=== PATIENT | female | born 1985 | race Two or more races ===

== ENCOUNTER 2020-09-11 09:52 | Outpatient (CLI) | payer OTHER ==
--- NOTE | 2020-09-11 10:48 | Non Stress Test Report ---
Non Stress Test Datetime Report Generated by CPN: 09/11/2020 10:48 DEMOGRAPHIC EGA NST: 40.4 MONITORING Monitor Explained: Monitor Explained; Test Explained; Patient Verbalized Understanding Time on Monitor: 09/11/2020 10:07 Time off Monitor: 09/11/2020 10:32 NST Duration: 25 NST INTERVENTIONS NST Interventions: Reposition Patient Physician Notified NST: Dr. Liao on unit, reviewed fht BABY A: [id number] BABY A Movement : Present Contraction Frequency : uterine irritability FHR Baseline : 135 Accelerations : 15X15 Decelerations : None Variability : Moderate 6-25bpm NST Review: Meets Criteria for Reactive NST NST Review and Verified By : ARELI Quezada Results: Reactive NST REPORT Report Trigger: Send Report
--- NOTE | 2020-09-11 11:14 | PDOC PROGRESS REPORT ---
Subjective Date:: 09/11/20 Subjective:: here for NST Reason For Visit: NST do to post term Physical Exam - Physical Exam Vital Signs: Intake & Output 09/10/20 09/11/20 09/12/20 06:59 06:59 06:59 Weight 98.4 kg General appearance: PRESENT: no acute distress, well-developed, well-nourished Eye exam: PRESENT: conjunctiva pink, EOMI, PERRLA. ABSENT: scleral icterus Respiratory exam: PRESENT: clear to auscultation yoselin, symmetrical, unlabored Cardiovascular exam: PRESENT: RRR. ABSENT: diastolic murmur, rubs, systolic murmur Pulses: PRESENT: normal dorsalis pedis pul, +2 pedal pulses bilateral Vascular exam: PRESENT: normal capillary refill GI/Abdominal exam: PRESENT: normal bowel sounds, soft. ABSENT: distended, guarding, mass, organolmegaly, rebound, tenderness Rectal exam: PRESENT: deferred Extremities exam: PRESENT: full ROM. ABSENT: calf tenderness, clubbing, pedal edema Neurological exam: PRESENT: alert, awake, oriented to person, oriented to place, oriented to time, oriented to situation, CN II-XII grossly intact. ABSENT: motor sensory deficit Skin exam: PRESENT: dry, intact, warm. ABSENT: cyanosis, rash Assessment & Plan - Diagnosis (1) Post term over 40 weeks Is this a current diagnosis for this admission?: Yes Plan: Reactive NST. POst term . KAMAR normal in office this week. Cvx /-3/post/soft. Reviewed recommendations for IOL and plan for cervidil IOL on Monday. Pt has orders and instructions from office in hand. Reassuring FWB - Time Time Spent with patient: 15-24 minutes Medications reviewed and adjusted accordingly: Yes Anticipated discharge: Home Anticipated DC Timeframe: Other - now - Inpatient Certification Based on my medical assessment, after consideration of the patient's comorbidities, presenting symptoms, or acuity I expect that the services needed warrant INPATIENT care.: No I certify that my determination is in accordance with my understanding of Medicare's requirements for reasonable and necessary INPATIENT services [42 CFR 412.3e].: No Medical Necessity: Other - Plan Summary Plan Summary: Discharge to home now. Plan for IOL on Monday
== END 2020-09-11 10:52 | disposition home or self-care (01) ==
LOC: LC 09:52
PROVIDERS: ATTEND Student in an Organized Health Care Education/Training Program
DX: O48.0 Post-term pregnancy (principal); Z3A.40 40 weeks gestation of pregnancy
CPT/HCPCS: 59025

== ENCOUNTER 2020-09-14 06:10 | Inpatient (IN) | payer OTHER ==
[2020-09-14] MEDS ORDERED: PENICILLIN G-K 5 MILLION UNIT VIAL ONE (06:20)
[2020-09-14] MEDS ORDERED: MISOPROSTOL 0.2 MG TABLET ONE (06:20)
[2020-09-14] MEDS ORDERED: OXYTOCIN 10 UNIT/ML VIAL ONE (06:20)
[2020-09-14] MEDS ORDERED: OXYTOCIN/0.9 % SODIUM CHLORIDE 30 UNIT/500 ML RTUINJ ONE (06:20)
[2020-09-14] MEDS ORDERED: LIDOCAINE 1% INJ-PF (10 MG/ML) 30 ML SDV ONE (06:20)
[2020-09-14] MEDS ORDERED: OXYTOCIN/0.9 % SODIUM CHLORIDE 30 UNIT/500 ML RTUINJ IV PRN ×2 (06:22→19:04)
[2020-09-14] MEDS ORDERED: RINGERS SOLUTION,LACTATED 500 ML IV ONE (06:24)
[2020-09-14] MEDS ORDERED: PENICILLIN G POTASSIUM 5,000,000 UNIT in DEXTROSE 5%-WATER 100 ML IV ONE (06:24)
[2020-09-14 06:52] LABS: ABSOLUTE EOSINOPHILS # (AUTO) 0.1 10^3/uL (0.0-0.6); ABSOLUTE LYMPHOCYTES (AUTO) 1.5 10^3/uL (0.5-4.7); ABSOLUTE MONOCYTES (AUTO) 0.7 10^3/uL (0.1-1.4); ABSOLUTE NEUT (AUTO) 6.1 10^3/uL (1.7-8.2); BASOPHILS % (AUTO) 0.5 % (0-2); EOSINOPHILS % (AUTO) 1.5 % (0-6); HEMATOCRIT 32.1 % (36.0-47.0); HEMOGLOBIN 11.6 g/dL (12.0-15.5); LYMPHOCYTES % (AUTO) 17.9 % (13-45); MEAN CORPUSCULAR HEMOGLOBIN 30.4 pg (27.0-33.4); MEAN CORPUSCULAR HGB CONC 36.2 g/dL (32.0-36.0); MEAN CORPUSCULAR VOLUME 84 fl (80-97); MONOCYTES % (AUTO) 8.7 % (3-13); PLATELET COUNT 193 10^3/uL (150-450); RED BLOOD COUNT 3.81 10^6/uL (3.72-5.28); RED CELL DISTRIBUTION WIDTH 14.1 % (11.5-14.0); SEGMENTED NEUTROPHILS % (AUTO) 71.4 % (42-78); TOTAL CELLS COUNTED % (AUTO) 100 %; WHITE BLOOD COUNT 8.6 10^3/uL (4.0-10.5)
[2020-09-14 06:56] LABS: APPEARANCE,URINE SLIGHTLY-CLOUDY; BILIRUBIN,URINE NEGATIVE (NEGATIVE); COLOR,URINE YELLOW; GLUCOSE, URINE NEGATIVE (NEGATIVE); KETONES,URINE NEGATIVE (NEGATIVE); LEUKOCYTE ESTERASE,URINE NEGATIVE (NEGATIVE); NITRITE,URINE NEGATIVE (NEGATIVE); PROTEIN,URINE NEGATIVE (NEGATIVE); URINE SPECIFIC GRAVITY 1.019; UROBILINOGEN,URINE NEGATIVE mg/dL (<2.0)
[2020-09-14] MEDS: RINGERS SOLUTION,LACTATED 1,000 ML IV PRN ×2 (06:56→07:37)
[2020-09-14 07:35] LABS: URINE AMPHETAMINES SCREEN NEGATIVE; URINE BARBITURATES SCREEN NEGATIVE; URINE BENZODIAZEPINES SCREEN NEGATIVE; URINE COCAINE SCREEN NEGATIVE; URINE MARIJUANA (THC) SCREEN NEGATIVE; URINE METHADONE SCREEN NEGATIVE; URINE PHENCYCLIDINE SCREEN NEGATIVE
--- NOTE | 2020-09-14 09:43 | Admission Physical ---
Datetime Report Generated by CPN: 09/14/2020 09:43 CURRENT ADMISSION Chief Complaint: Scheduled Induction of Labor Indication for Induction: Post Dates Admit Impression : Postterm, Intrauterine ; No Active Labor; Induction of Labor Admit Plan: Admit to Unit; Initiate Labor Induction Protocol Admit Plan- Other: GBS + pelvis proven to 7lb 14 oz ALLERGIES Medication Allergies: No Medication Allergies: No Known Allergies (09/14/2020) Latex: No Latex Allergies Food Allergies: none Environmental Allergies: none OBSTETRICAL HISTORY EDC: 09/07/2020 00:00 : 5 Para: 4 Term: 4 : 0 SAB: 0 IAB: 0 Ectopic: 0 Livin Cesareans: 0 VBACs: 0 Multiple Births: 0 Gestational Diabetes: No Rh Sensitization: No Incompetent Cervix: No STACY: No Infertility: No ART Treatment: No Uterine Anomaly: No IUGR: No Hx Previous C/S: No Macrosomia: No Hx Loss/Stillborn: No PIH: No Hx : No Placenta Previa/Abruption: No Depression/PP Depression: No PTL/PROM: No Post Hemorrhage: No Current Procedures: Ultrasound Obstetrical History Comments: G1- 2007 girl G2- 2009 boy G3- 2014 boy G4- 2015 boy G5- Current SEE RECORDS Alcohol: No Marijuana : No Cocaine: No Other Illicit Drugs: No Cigarettes: Never Smoker. 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 Surgery: No Heart Disease: No Hosp/Surgery: Yes Autoimmune Disorder: No Anesthetic Complications: No Kidney Disease: No Abnormal Pap Smear: No Neuro/Epilepsy: No Psychiatric Disorders: No Other Medical Diseases: No Hepatitis/Liver Disease: No Significant Family History: No Varicosities/Phlebitis: No Trauma/Violence : No Thyroid Dysfunction: No Medical History Comments: hx of pre-e, gallbladder removal 07/12/2018, hysteroscopy 10/12/2017 INFECTIOUS HISTORY Gonorrhea: No Genital Herpes: No Chlamydia: No Tuberculosis: No Syphilis: No Hepatitis: No HIV/AIDS Exposure: No Rash or Viral Illness: No HPV: No PHYSICAL EXAM General: Normal HEENT: Normal Neurologic: Normal Thyroid: Deferred Heart: Normal Lungs: Normal Breast: Deferred Back: Deferred Abdomen: Normal Genitourinary Exam: Normal Extremities: Normal DTRs: Deferred Pelvic Type: Adequate Vital Signs: Reviewed FETUS A EGA: 41.0 Monitoring: External US FHR- Baseline: 140 Variability: Moderate 6-25bpm FHR Category: Category II Presentation: Vertex Admit Comment: , here for IOL undecided on Epidural GBS+, pcn given PLANS FOR LABOR AND DELIVERY Feeding Preference: Formula Benefit of Breast Feed Discussed: Yes Circumcision: N/A INFORMED CONSENT Assignment: Oralia Espinoza MD Signature: with User ID: Mirta : with User ID: Mirta
[2020-09-14] MEDS: PENICILLIN G POTASSIUM 2,500,000 UNIT in DEXTROSE 5%-WATER 50 ML IV SCH ×2 (10:30→14:30)
[2020-09-14] MEDS ORDERED: EPHEDRINE SULFATE INJ 50 MG/1 ML AMPULE ONE (15:33)
[2020-09-14] MEDS ORDERED: FENTANYL/BUPIVACAINE/NS/PF 300 MCG/150 ML RTUINJ EPI ONE (15:33)
[2020-09-14] MEDS ORDERED: ROPIVACAINE HCL 0.2% INJ/PF (2 MG/ML) 20 ML SDV ONE (15:34)
[2020-09-14] MEDS ORDERED: MISOPROSTOL 0.2 MG TABLET PR ONE (17:00)
--- NOTE | 2020-09-14 17:47 | Delivery Summary ---
Del Sum A-C Datetime Report Generated by CPN: 09/14/2020 17:46 DELIVERY PERSONNEL DELIVERY PERSONNEL: [id number] Delivery Doctor:: Linda Alvarado CNM Labor and Delivery Nurse:: Miesha Ruiz RN Nursery Nurse:: Jaqui Cooley RN Photography Spotter/GUARD MUSEUM: Marisol Khan, FILE MACHINE OPERATOR MATERNAL INFORMATION Delivery Anesthesia: Epidural Medications After Delivery: Pitocin 30 Units in 500ml NS/D5W; Cytotec 1000mcg Per Rectum/Vagina Delivery QBL: 325 Delivery QBL Comment: 325 Maternal Complications: None Provider Comments: SVDVF over intact perineum. Tight nuchal cord, shoulders tight, mild dystocia relieved with Camelia and suprapubic pressure, somersaulted baby through cord. Infant vigorous, to mothers abd. Cord clamped x 2 cut per FOB, 3VC. Placenta intact via oconnor. Bleeding light initially, then had gush, clots cleared from DARLINE. Cytotec placed rectally. Infant and mother stable. LABOR SUMMARY EDC: 09/07/2020 00:00 No. Babies in Womb: 1 Attempted: No Labor Anesthesia: Epidural LABOR INFORMATION Reason for Induction: Post Dates Onset of Labor: 09/14/2020 09:54 Complete Dilatation: 09/14/2020 16:28 Oxytocin: Induction Group B Beta Strep: Positive Antibiotics # of Doses: 3 Antibiotics Time of Last Dose: 09/14/2020 14:30 Name of Antibiotic Given: PCN G-K Steroids Given: None Reason Steroids Not Administered: Not Applicable MEMBRANES Membranes Rupture Method: Artificial Rupture of Membranes: 09/14/2020 09:54 Length of Rupture (hr): 6.85 Amniotic Fluid Color: Clear Amniotic Fluid Amount: Moderate Amniotic Fluid Odor: Normal STAGES OF LABOR Stage 1 hr: 6 Stage 1 min: 34 Stage 2 hr: 0 Stage 2 min: 17 Stage 3 hr: 0 Stage 3 min: 6 Total Time in Labor hr: 6 Total Time in Labor min: 57 VAGINAL DELIVERY Episiotomy: None Laceration #1: None Laceration Extension #1: N/A Laceration Repair: Not Applicable Sponge Count Correct: Yes Sharps Count Correct: N/A CSECTION DELIVERY Primary Indication: N/A Secondary Indication: N/A CSection Incidence: N/A Labor: N/A Elective: N/A BABY A INFORMATION Delivery Date/Time: 09/14/2020 16:45 Method of Delivery: Vaginal Nurse Controlled Delivery: No Born in Route : No : N/A Forceps: N/A Vacuum Extraction: N/A Shoulder Dystocia : Yes SHOULDER DYSTOCIA BABY A Delivery of Head: 09/14/2020 16:44 Time Head to Delivery : 1.0 1st Intervention to Resolve: Gentle Attempt at Traction, Assisted by Maternal Expulsive Efforts 2nd Intervention to Resolve: McRobert's Maneuver 3rd Intervention to Resolve: Suprapubic Pressure Verify NO Fundal Pressure: No Fundal Pressure Applied Shoulder Dystocia Comments: Total time 20 seconds PRESENTATION/POSITION BABY A Presentation: Cephalic Cephalic Presentation: Vertex Vertex Position: Right Occipital Anterior Breech Presentation: N/A PLACENTA INFORMATION BABY A Placenta Delivery Time : 09/14/2020 16:51 Placenta Method of Delivery: Spontaneous Placenta Status: Delivered SCORES BABY A Heart Rate 1 min: >100 bpm Resp Effort 1 min: Good Cry Reflex Irritability 1 min: Cough or Sneeze or Pulls Away Muscle Tone 1 min: Active Motion Color 1 min: Blue/Pale Resuscitation Effort 1 min: Tactile Stimulation SCORE 1 MIN: 8 Heart Rate 5 min: >100 bpm Resp Effort 5 min: Good Cry Reflex Irritability 5 min: Cough or Sneeze or Pulls Away Muscle Tone 5 min: Active Motion Color 5 min: Body [place], Extremities Blue Resuscitation Effort 5 min: N/A SCORE 5 MIN: 9 INFORMATION BABY A Gestational Age at Delivery: 41.0 Gestational Status: Late Term- 41- 41.6 Weeks Infant Outcome : Liveborn Infant Condition : Stable Sex: Female IDENTIFICATION BABY A Verification Date/Time: 09/14/2020 17:18 ID Band Number: [id number] Mother's Name Verified: Yes Infant RN Verifying : Caleb Ruiz RN Additional Verifying Personnel: Isaak Lange RN WEIGHT/LENGTH BABY A Birthweight (gm): 3880 Infant Weight (lb): 8 Infant Weight (oz): 9 Infant Length (in): 20.50 Infant Length (cm): 52.07 CORD INFORMATION BABY A No. Cord Vessels: 3 Nuchal Cord : N/A Cord Blood Taken: Yes-For Storage (Mom's Blood type +) Infant Suction: None ASSESSMENT BABY A Skin to Skin: Yes BABY B INFORMATION : N/A SIGNATURES Assignment: Oralia Espinoza MD Signature: with User ID: Stans : with User ID: Mirta : I was personally available for consultation and serving as supervising physician for the P.
--- NOTE | 2020-09-14 17:47 | Birth Certificate Data ---
Cert Data Datetime Report Generated by CPN: 09/14/2020 17:46 CERTIFICATE DATA Delivery Provider: Linda Alvarado CNM (09/11/2020 09:57:Linda Alvarado CNM) 47a. Care: Yes (09/11/2020 09:57:Riri Vallejo RN) 47b. Date of First Visit: 02/26/2020 00:00 (09/11/2020 09:57:Riri Vallejo RN) 47c. Date of Last Visit: 09/09/2020 00:00 (09/11/2020 09:57:Riri Vallejo RN) 47d. Number of Visits: 10 (09/11/2020 09:57:Riri Vallejo RN) 48a. Number of Prev Live Births: 4 (09/11/2020 09:57:Riri Vallejo RN) 48b. Now Livin (09/11/2020 09:57:Riri Vallejo RN) 48c. Live Births Now : 0 (09/11/2020 09:57:QS system process) 48d. Date of Last Live : 03/25/2016 00:00 (09/11/2020 09:57:Ashwini Hunter RN) 48e. Losses: 0 (09/11/2020 09:57:Riri Vallejo RN) RISK FACTORS IN THIS 49a. Diabetes: No (09/11/2020 09:57:Ashwini Hunter RN) 49b. Hypertension: No (09/11/2020 09:57:Ashwini Hunter RN) Type of Hypertension: Gestational (PIH, Pre-eclampsia) (09/11/2020 09:57:Riri Vallejo RN) 49c. Previous Births: 0 (09/11/2020 09:57:Riri Vallejo RN) 49d. Stillborns: No (09/11/2020 09:57:Ashwini Hunter RN) 49d. IUGR: No (09/11/2020 09:57:Ashwini Hunter RN) 49e. Infertility Treatment: No (09/11/2020 09:57:Ashwini Hunter RN) 49f. Previous Cesareans: 0 (09/11/2020 09:57:Riri Vallejo RN) Mother's Height 50b. Height Inches: 68 (09/14/2020 08:26:QS system process) Mother's Weight 51a. Pre- Weight (lbs): 185 (09/11/2020 09:57:Riri Vallejo RN) 51b. Weight at Delivery (lbs): 216 (09/14/2020 08:26:QS system process) 52. Dt Last Normal Menses Began: 12/02/2019 00:00 (09/11/2020 09:57:Riri Vallejo RN) Infections Present/Treated 53a. Gonorrhea: No (09/11/2020 09:57:Ashwini Hunter RN) Results this Hospital Visit : Negative (09/11/2020 09:57:Nickie Fuller RN) 53b. Syphilis: No (09/11/2020 09:57:Ashwini Hunter RN) Results this Hospital Visit: NONREACTIVE (09/14/2020 06:40:QS system process) 53c. Chlamydia: No (09/11/2020 09:57:Ashwini Hunter RN) Results this Hospital Visit: Negative (09/11/2020 09:57:Nickie Fuller RN) 53d. Hepatitis B: No (09/11/2020 09:57:Ashwini Hunter RN) Results this Hospital Visit: Negative (09/11/2020 09:57:Nickie Fuller RN) 53e. Hepatitis C: Negative (09/11/2020 09:57:Riri Vlalejo RN) 53h. Mother Tested for HBsAG: Yes (09/11/2020 09:57:Riri Vallejo RN) 53i. Date Tested: 02/26/2020 00:00 (09/11/2020 09:57:Riri Vallejo RN) 53j. Test Result: Negative (09/11/2020 09:57:Nickie Fuller RN) Obstetric Procedures 54a, b, c. Obstetric Procedures: Ultrasound (09/11/2020 09:57:Riri Vallejo RN) Cigarette Smoking Cigarette Smoking: Never Smoker. [id number] (09/11/2020 09:57:Ashwini Hunter RN) 55a. 3 Months Before Preg - Ci (09/11/2020 09:57:Ashwini Hunter RN) 55a. Packs: 0 (09/11/2020 09:57:Ashwini Hunter RN) 55b. 1st Trimester of Preg- Ci (09/11/2020 09:57:Ashwini Hunter RN) 55b. Packs: 0 (09/11/2020 09:57:Ashwini Hunter RN) 55c. 2nd Trimester of Preg- Ci (09/11/2020 09:57:Ashwini Hunter RN) 55c. Packs: 0 (09/11/2020 09:57:Ashwini Hunter RN) 55d. 3rd Trimester of Preg- Ci (09/11/2020 09:57:Ashwini Hunter RN) 55d. Packs: 0 (09/11/2020 09:57:Ashwini Hunter RN) Onset of Labor 56a. PROM >12 Hrs: 6.85 (09/14/2020 09:54:QS system process) 56b. Precipitous Labor <3 Hrs: 6 (09/11/2020 09:57:QS system process) 56c. Prolonged Labor > 20 Hrs: 6 (09/11/2020 09:57:QS system process) 57a. Induction of Labor: Induction (09/11/2020 09:57:Miesha Ruiz RN) 57c. Non-Vertex Presentation A: Vertex (09/11/2020 09:57:Miesha Ruiz RN) 57d. Steroids - Lung Mat: None (09/11/2020 09:57:Miesha Ruiz RN) 57d. Steroids - Lung Mat: Not Applicable (09/11/2020 09:57:Miesha Ruiz RN) 57e. Antibiotics During Labor: 09/14/2020 14:30 (09/11/2020 09:57:Miesha Ruiz RN) 57f. Mat [place] or Temp >100.4: 98.0 (09/11/2020 09:57:Miesha Ruiz RN) 57g. Moderate/Heavy Meconium: Clear (09/14/2020 09:54:Miesha Ruiz RN) 57h. Intolerance of Labor: N/A (09/11/2020 09:57:Miesha Ruiz RN) : N/A (09/11/2020 09:57:Miesha Ruiz RN) 57i. Epidural/Spinal Anesthesia: Epidural (09/11/2020 09:57:Miesha Ruiz RN) Method of Delivery 58a. Forceps - Unsuccessful A: N/A (09/11/2020 09:57:Miesha Joseph, RN) 58b. Vacuum - Unsuccessful A: N/A (09/11/2020 09:57:Mieshagerardo Ruiz, RN) 58c. Presentation at 58c. Presentation at - A : Vertex (09/11/2020 09:57:Mieshagerardo Ruiz, RN) 58c. Presentation at - A : N/A (09/11/2020 09:57:Miesha Ruiz, RN) 58c. Presentation at - A : Cephalic (09/11/2020 09:57:Miesha Ruiz, RN) Final Route and Method of Del 58d. Baby A Route/Delivery: Vaginal (09/14/2020 16:45:Miesha Ruiz RN) 58e. Trial of Labor Attempted: No (09/11/2020 09:57:Mieshagerardo Ruiz RN) 58e. Trial of Labor Attempted A: N/A (09/11/2020 09:57:Mieshagerardo Ruiz RN) 58e. Trial of Labor Attempted B: N/A (09/11/2020 09:57:Miesha ARELI Ruiz) Maternal Morbidity 59b. 3rd or 4th Degree Lacs: None (09/11/2020 09:57:Linda Alvarado CNM) Birthweight Baby A: 3880 (09/11/2020 09:57:Miesha Ruiz RN) 60a. Pounds : 8 (09/11/2020 09:57:QS system process) 60b. Ounces: 9 (09/11/2020 09:57:QS system process) 61. GA at Delivery Baby A: 41.0 (09/11/2020 09:57:Miesha Sales, RN) : Late Term- 41- 41.6 Weeks (09/11/2020 09:57:QS system process) 62a. 5 Minute Baby A: 9 (09/11/2020 09:57:QS system process)
[2020-09-14] MEDS ORDERED: METHYLERGONOVINE MALEATE INJ/PF 0.2 MG/1 ML AMPULE ONE (17:48)
[2020-09-14] MEDS ORDERED: METHYLERGONOVINE MALEATE INJ/PF 0.2 MG/1 ML AMPULE IV ONE (17:52)
[2020-09-14] MEDS: IBUPROFEN 800 MG TABLET PO SCH ×2 (18:52→21:10)
[2020-09-14] MEDS ORDERED: IBUPROFEN 800 MG TABLET ONE (18:52)
[2020-09-14] MEDS ORDERED: DIBUCAINE 1% OINTMENT 28 GM TP PRN (19:04)
[2020-09-14] MEDS ORDERED: ACETAMINOPHEN WITH CODEINE #3 TABLET PO PRN ×2 (19:04)
[2020-09-14] MEDS ORDERED: PSEUDOEPHEDRINE HCL 30 MG TABLET PO PRN (19:04)
[2020-09-14] MEDS ORDERED: BENZOCAINE/MENTHOL AEROSOL SPRAY 56 ML TOP PRN (19:04)
[2020-09-14] MEDS ORDERED: MAG HYDROX/AL HYDROX/SIMETH SUSP 30 ML UDCUP PO PRN (19:04)
[2020-09-14] MEDS ORDERED: ACETAMINOPHEN 650 MG SUPP.RECT PR PRN (19:04)
[2020-09-14] MEDS ORDERED: DIPHENHYDRAMINE HCL 25 MG CAPSULE PO PRN (19:04)
[2020-09-14] MEDS ORDERED: FAMOTIDINE 20 MG TABLET PO PRN (19:04)
[2020-09-14] MEDS ORDERED: GLYCERIN/WITCH HAZEL LEAF 1 EACH MED..WIPE TP PRN (19:04)
[2020-09-14] MEDS ORDERED: MAGNESIUM HYDROXIDE SUSP 30 ML UDCUP PO PRN (19:04)
[2020-09-14] MEDS ORDERED: ZOLPIDEM TARTRATE 5 MG TABLET PO PRN (19:04)
[2020-09-14] MEDS ORDERED: DIPH/PERTUSS(ACELL)/TETANUS VAC/PF 0.5 ML SYR (>=10YO) IM PRN (19:04)
[2020-09-14] MEDS ORDERED: ACETAMINOPHEN 325 MG TABLET PO PRN (19:04)
[2020-09-14] MEDS ORDERED: VARICELLA VACC/PF (1350 UNIT/0.5 ML) 0.5 ML VIAL SUBCUT PRN (19:04)
[2020-09-14] MEDS ORDERED: MEASLES,MUMPS&RUBELLA VACC/PF 0.5 ML VIAL SUBCUT PRN (19:04)
[2020-09-15] MEDS ORDERED: ASPIRIN 81 MG TABLET, CHEWABLE ONE (04:16)
[2020-09-15] MEDS ORDERED: ASPIRIN 81 MG TABLET, CHEWABLE PO ONE (04:45)
[2020-09-15] MEDS: IBUPROFEN 800 MG TABLET PO SCH ×3 (06:00→21:39)
--- NOTE | 2020-09-15 06:20 | RADIOLOGY REPORT (SQ) ---
CLINICAL HISTORY: chest pain, POST 09/14/20 COMPARISON: None. TECHNIQUE: CT CHEST ANGIOGRAPHY WITHOUT THEN WITH IV CONTRAST on 09/15/2020 12:00 AM CAMERA MAKER. MIPS reconstructions were generated. This exam was performed according to our departmental dose-optimization program, which includes automated exposure control, adjustment of the mA and/or kV according to patient size and/or use of iterative reconstruction technique. MIP images were generated. FINDINGS: Thoracic aorta is normal in course and caliber without aneurysm or dissection. Pulmonary arteries are adequately opacified without acute or chronic filling defects. The heart is mildly enlarged. There is no pericardial effusion. Intrathoracic lymph nodes are not enlarged. There is no pleural effusion, pleural thickening or pneumothorax. Central airways are patent. Lungs are clear with no consolidation, mass or interstitial lung disease. There are no acute abnormalities within the limited images of the upper abdomen. There are no acute osseous findings. No suspicious bony lesions. IMPRESSION: No aortic dissection or aneurysm. No pulmonary embolus. No definite pneumonia.
[2020-09-15 07:07] LABS: HEMATOCRIT 30.4 % (36.0-47.0); MEAN CORPUSCULAR HEMOGLOBIN 30.5 pg (27.0-33.4); MEAN CORPUSCULAR HGB CONC 36.3 g/dL (32.0-36.0); MEAN CORPUSCULAR VOLUME 84 fl (80-97); PLATELET COUNT 174 10^3/uL (150-450); RED BLOOD COUNT 3.62 10^6/uL (3.72-5.28); WHITE BLOOD COUNT 9.9 10^3/uL (4.0-10.5)
[2020-09-15] MEDS: FERROUS SULFATE 325 MG TABLET PO SCH ×2 (10:43→17:35)
[2020-09-15] MEDS: SENNOSIDES/DOCUSATE 8.6-50 MG 1 EACH TABLET PO SCH (10:43)
[2020-09-15] MEDS: PRENATAL VITAMIN W DHA CAPSULE PO SCH (10:43)
[2020-09-15] MEDS: DOCUSATE SODIUM 100 MG CAPSULE PO SCH ×2 (10:43→17:35)
--- NOTE | 2020-09-15 11:33 | PDOC PROGRESS REPORT ---
Subjective-OB Progress Note for:: 09/15/20 Subjective: reports bleeding slowing, pain controlled with current meds. denies needs Physical Exam (OB) Vital Signs: Temp Pulse Resp BP Pulse Ox 97.8 F 68 16 105/60 100 09/15/20 07:19 09/15/20 07:19 09/15/20 07:19 09/15/20 07:19 09/15/20 07:19 Intake & Output 09/14/20 09/15/20 09/16/20 06:59 06:59 06:59 Intake Total 185 140 Balance 185 140 Weight 97.9 kg - Maternal Morbidity 59. Maternal Morbidity (serious complications experinced by the mother associated with labor and delivery: None of the above - Abdomen Description: Soft Hernia Present: No Fundal Description: Firm, Midline Fundal Height: u/u - u/2 - Abdominal Distension: No distension Tenderness: Nontender - Extremities Lower extremities: Duke's sign - neg Calf: Normal, Nontender Objective-Diagnostic Laboratory: 09/15/20 06:52 09/15/20 06:52 WBC 9.9 RBC 3.62 L Hgb 11.0 L Hct 30.4 L MCV 84 MCH 30.5 MCHC 36.3 H RDW 14.0 Plt Count 174 Assessment and Plan(PN) - Time Spent with Patient Time with patient: Less than 15 minutes - Disposition Anticipated Discharge Disposition: Home, Self Care Anticipated Discharge Timeframe: within 24 hours
[2020-09-16] MEDS: IBUPROFEN 800 MG TABLET PO SCH (05:33)
[2020-09-16 08:27] VITALS: BP 123/65
[2020-09-16] MEDS: SENNOSIDES/DOCUSATE 8.6-50 MG 1 EACH TABLET PO SCH (10:10)
[2020-09-16] MEDS: PRENATAL VITAMIN W DHA CAPSULE PO SCH (10:10)
[2020-09-16] MEDS: FERROUS SULFATE 325 MG TABLET PO SCH (10:11)
[2020-09-16] MEDS: DOCUSATE SODIUM 100 MG CAPSULE PO SCH (10:11)
--- NOTE | 2020-09-16 10:32 | PDOC DISCHARGE SUMMARY ---
Impression - Admit/DC Date/PCP Admission Date/Primary Care Provider: 09/14/20 06:10 Discharge Date: 09/16/20 - PP day #2, doing well, B+, Rubella Immune, bottlefeeding - Discharge Diagnosis (1) Encounter for induction of labor Is this a current diagnosis for this admission?: Yes (2) Post term over 40 weeks Is this a current diagnosis for this admission?: Yes - Additional Information Resuscitation Status: Full Code Discharge Diet: As Tolerated, Regular Discharge Activity: Activity As Tolerated Prescriptions: Ibuprofen [Motrin 800 mg Tablet] 800 mg PO Q8 #60 tablet Home Medications: No122/Iron/Folic Acid [ Multi Tablet] 1 tab PO DAILY 09/11/20 Ibuprofen [Motrin 800 mg Tablet] 800 mg PO Q8 #60 tablet 09/16/20 HPI Reason(s) for Admission: Induction of Labor Procedures: NST, Ultrasound Intrapartum Procedure(s): Spontaneous Vaginal Delivery Hospital Course 59. Maternal Morbidity (serious complications experinced by the mother associated with labor and delivery: None of the above Results Laboratory Results: WBC 9.9 10^3/uL (4.0-10.5) 09/15/20 06:52 RBC 3.62 10^6/uL (3.72-5.28) L 09/15/20 06:52 Hgb 11.0 g/dL (12.0-15.5) L 09/15/20 06:52 Hct 30.4 % (36.0-47.0) L 09/15/20 06:52 MCV 84 fl (80-97) 09/15/20 06:52 MCH 30.5 pg (27.0-33.4) 09/15/20 06:52 MCHC 36.3 g/dL (32.0-36.0) H 09/15/20 06:52 RDW 14.0 % (11.5-14.0) 09/15/20 06:52 Plt Count 174 10^3/uL (150-450) 09/15/20 06:52 Lymph % (Auto) 17.9 % (13-45) 09/14/20 06:40 [place] % (Auto) 8.7 % (3-13) 09/14/20 06:40 Eos % (Auto) 1.5 % (0-6) 09/14/20 06:40 Baso % (Auto) 0.5 % (0-2) 09/14/20 06:40 Absolute Neuts (auto) 6.1 10^3/uL (1.7-8.2) 09/14/20 06:40 Absolute Lymphs (auto) 1.5 10^3/uL (0.5-4.7) 09/14/20 06:40 Absolute Monos (auto) 0.7 10^3/uL (0.1-1.4) 09/14/20 06:40 Absolute Eos (auto) 0.1 10^3/uL (0.0-0.6) 09/14/20 06:40 Absolute Basos (auto) 0.0 10^3/uL (0.0-0.2) 09/14/20 06:40 Seg Neutrophils % 71.4 % (42-78) 09/14/20 06:40 Urine Color YELLOW 09/14/20 06:30 Urine Appearance SLIGHTLY-CLOUDY 09/14/20 06:30 Urine pH 7.0 (5.0-9.0) 09/14/20 06:30 Ur Specific [place] 1.019 09/14/20 06:30 Urine Protein NEGATIVE mg/dL (NEGATIVE) 09/14/20 06:30 Urine Glucose (UA) NEGATIVE mg/dL (NEGATIVE) 09/14/20 06:30 Urine Ketones NEGATIVE mg/dL (NEGATIVE) 09/14/20 06:30 Urine Blood NEGATIVE (NEGATIVE) 09/14/20 06:30 Urine Nitrite NEGATIVE (NEGATIVE) 09/14/20 06:30 Urine Bilirubin NEGATIVE (NEGATIVE) 09/14/20 06:30 Urine Urobilinogen NEGATIVE mg/dL (<2.0) 09/14/20 06:30 Ur Leukocyte Esterase NEGATIVE (NEGATIVE) 09/14/20 06:30 Urine Ascorbic Acid NEGATIVE (NEGATIVE) 09/14/20 06:30 Urine Opiates Screen NEGATIVE 09/14/20 06:30 Urine Methadone Screen NEGATIVE 09/14/20 06:30 Ur Barbiturates Screen NEGATIVE 09/14/20 06:30 Ur Phencyclidine Scrn NEGATIVE 09/14/20 06:30 Ur Amphetamines Screen NEGATIVE 09/14/20 06:30 U Benzodiazepines Scrn NEGATIVE 09/14/20 06:30 Urine Cocaine Screen NEGATIVE 09/14/20 06:30 U Marijuana (THC) Screen NEGATIVE 09/14/20 06:30 RPR NONREACTIVE (NONREACTIVE) 09/14/20 06:40 Blood Type B POSITIVE 09/14/20 06:40 Antibody Screen NEGATIVE 09/14/20 06:40 Impressions: Chest/Abdomen CTA 09/15/20 00:00 IMPRESSION: No aortic dissection or aneurysm. No pulmonary embolus. No definite pneumonia. Plan Plan of Treatment: d/c home, f/up with [facility] in 4 wks for PP check Time Spent: Less than 30 Minutes
== END 2020-09-16 13:24 | disposition home or self-care (01) | DRG 807 ==
LOC: LR 06:10 → 2S 19:58
PROVIDERS: ADMIT Obstetrics & Gynecology; ATTEND Obstetrics & Gynecology
PROC: 10E0XZZ Delivery of Products of Conception, External Approach (ICD-10-PCS; principal; 2020-09-14)
DX: O48.0 Post-term pregnancy (principal); Z37.0 Single live birth; O99.824 Streptococcus B carrier state complicating childbirth; O69.1XX0 Labor and delivery complicated by cord around neck, with compression, not applicable or unspecified; Z90.49 Acquired absence of other specified parts of digestive tract; O66.0 Obstructed labor due to shoulder dystocia; Z3A.41 41 weeks gestation of pregnancy
CPT/HCPCS: 1967; 36415; 71275; 80307; 81005; 85025; 85027; 86592; 86850; 86900; 86901; 94760; J2210; J2540; J2590; J2795; J3010; J3490; J7060